=== PATIENT | female | born 1985 | race Caucasian/White ===

== ENCOUNTER 2019-07-16 07:30 | Day surgery (SDC) | payer OTHER ==
[2019-07-16] MEDS ORDERED: ROCURONIUM 50 MG INJ (08:43)
[2019-07-16] MEDS ORDERED: LIDOCAINE 2% (SDV) 5 ML INJ (08:43)
[2019-07-16] MEDS ORDERED: PROPOFOL 20 ML (08:43)
[2019-07-16] MEDS ORDERED: SUCCINYLCHOLINE CHLORIDE 100 MG/5 ML SYG IV (08:43)
[2019-07-16] MEDS ORDERED: GLYCOPYRROLATE 0.4 MG INJ ×3 (08:43→08:44)
[2019-07-16] MEDS ORDERED: NEOSTIGMINE 3 MG/3 ML SYRINGE ×2 (08:44)
[2019-07-16] MEDS ORDERED: METOCLOPRAMIDE 10 MG INJ (08:44)
[2019-07-16] MEDS ORDERED: MIDAZOLAM 1 MG/ML 2 ML INJ (08:44)
[2019-07-16] MEDS ORDERED: MEPERIDINE 100 MG INJ (08:44)
[2019-07-16] MEDS ORDERED: ONDANSETRON 4 MG INJ (08:44)
[2019-07-16] MEDS ORDERED: CEFAZOLIN 1 GM INJ (08:49)
[2019-07-16] MEDS ORDERED: DIPHENHYDRAMINE 50 MG INJ IV (09:00)
[2019-07-16] MEDS ORDERED: FENTAnyl 50 MCG/ML VIAL IV ×3 (09:00)
[2019-07-16] MEDS ORDERED: ONDANSETRON 4 MG INJ IV (09:00)
[2019-07-16] MEDS ORDERED: HYDROmorphONE 1 MG/5 ML IV SYRINGE IV ×3 (09:00)
[2019-07-16] MEDS ORDERED: EPHEDrine 25 MG/5 ML SYG IV (09:00)
[2019-07-16] MEDS ORDERED: OXYCODONE/ACETAMINOPHEN (5/325) TAB PO ×2 (09:00)
[2019-07-16] MEDS ORDERED: LABETALOL HCL 20MG INJ IV (09:00)
[2019-07-16] MEDS ORDERED: MIDAZOLAM 1 MG/ML 2 ML INJ IV (09:00)
[2019-07-16] MEDS ORDERED: MEPERIDINE 25 MG INJ IV (09:00)
[2019-07-16] MEDS ORDERED: METOCLOPRAMIDE 10 MG INJ IV (09:00)
[2019-07-16] MEDS ORDERED: hydrALAzine 20 MG INJ IV (09:00)
[2019-07-16] MEDS ORDERED: SUGAMMADEX SODIUM 200 MG/2 ML VIAL IV (10:17)
== END 2019-07-16 11:52 | disposition home or self-care (01) ==
LOC: SDS 07:30
DX: Z30.2 Encounter for sterilization (principal); E66.01 Morbid (severe) obesity due to excess calories
CPT/HCPCS: 58670; 84703